=== PATIENT | male | born 1955 | race Caucasian/White ===

== ENCOUNTER 2020-12-13 16:54 | Inpatient (IN) | payer OTHER, SELFPAY ==
[~2020-12-13] VITALS: Ht 180.3 cm; Wt 91.6 kg
[~2020-12-13 16:54] MED LIST: ALIS300T PO; ASPI-1822 PO; CARV6.25 PO; CLOP75TA55 PO; ENAL20TA PO; INSU100S22 SUBQ; METF-350 PO; SIMV40TA1 PO
--- NOTE | 2020-12-13 16:54 | NUR ---
Patient BIBA ALS, transferred to bed 10. RN evaluating the patient at bedside.
[2020-12-13 16:55] VITALS: BP 187/66
--- NOTE | 2020-12-13 16:56 | NUR ---
Dr. Hill is evaluating the patient at bedside.
--- NOTE | 2020-12-13 17:01 | NUR ---
65 Y/O MALE BIBA FROM HOME C/O SOB X 2 HOURS AGO AND C/O NECK, BACK PAIN S/P FALL X 2 DAYS. O2 SAT 85% RA AT HOME PER EMS. BREATHING IS LABORED, DIMINISHED BREATH SOUNDS BILATERAL WITH CRACKLES. PT A/O X3- NOT AWARE OF SITATION. GCS 14. PT DENIES PAIN AT THIS TIME. GEORGIAN SPEAKING ONLY. PT APPEARS PALE AND JAUNDICE WITH MILD WEAKNESS. PT PUT IN GOWN AND ATTACHED TO FLOOR SUPERVISOR. BED IN LOWEST POSITION,BRAKES LOCKED, X2 SIDERAILS UP FOR SAFETY. PMH: CVA, HLD, HTN, DM. NKDA
[2020-12-13] MEDS ORDERED: NITROGLYCERIN 50 MG/D5W PREMIX 250 ML IV ONE (17:05)
--- NOTE | 2020-12-13 17:06 | NUR ---
RT AND LAB AT BEDSIDE
--- NOTE | 2020-12-13 17:08 | NUR ---
PT PUT ON BIPAP.
[2020-12-13 17:19] LABS: BASOPHILS # (AUTO) 0.1 K/uL (0.00-0.22); BASOPHILS % (AUTO) 1.1 % (0.0-2.0); EOSINOPHILS # (AUTO) 0.6 K/uL (0-0.4); EOSINOPHILS % (AUTO) 6.4 % (0.0-4.0); HEMATOCRIT 25.1 % (36-52); HEMOGLOBIN 8.2 g/dL (12.0-18.0); LYMPHOCYTES % (AUTO) 10.1 % (20.5-51.1); MEAN CORPUSCULAR HEMOGLOBIN 29 pg (27-31); MEAN CORPUSCULAR HGB CONC 33 g/dL (33-37); MEAN CORPUSCULAR VOLUME 87.4 fL (80-94); MONOCYTES # (AUTO) 0.6 K/uL (0.8-1.0); MONOCYTES % (AUTO) 5.7 % (1.7-9.3); NEUTROPHILS # (AUTO) 7.7 K/uL (1.8-7.7); NEUTROPHILS % (AUTO) 76.7 % (42.2-75.2); PLATELET COUNT (AUTO) 319 K/uL (140-450); RED BLOOD CELL COUNT(AUTO) 2.87 MIL/uL (4.20-6.10); RED CELL DISTRIBUTION WIDTH 14.1 % (11.6-13.7)
--- NOTE | 2020-12-13 17:39 | NUR ---
Patient taken to CT scan accompanied by RT and RN via [place].
[2020-12-13 17:52] LABS: ALBUMIN 2.7 g/dL (3.4-5.0); ANION GAP 16.3 (8-16); CARBON DIOXIDE 25.1 mmol/L (21-32); POTASSIUM 4.4 mmol/L (3.5-5.1); TOTAL BILIRUBIN 0.4 mg/dL (0.0-1.0)
[2020-12-13 17:57] LABS: CREATININE 7.3 mg/dL (0.6-1.3)
--- NOTE | 2020-12-13 18:05 | NUR ---
CHRIS ISLAS SAMPLE COLLECTED AND WALKED TO LAB
--- NOTE | 2020-12-13 18:48 | NUR ---
PER DR FELDER REQUEST, TAKE PT OFF OF BI PAP. RT CORONADO AT BEDSIDE, TOOK PT OFF OF BIPAP. PT IS NOW ON 5L N/C WITH SPO2 99%
--- NOTE | 2020-12-13 18:51 | NUR ---
D/C BIPAP PER MD AND PLACED ON 5LNC. IF TOLERATES WELL WILL REMAIN ON NC.
--- NOTE | 2020-12-13 19:11 | NUR ---
PT REPLACED ON NIV. PT PLACED BACK ON BIPAP 08/03 f14 60%. PT TOLERATING WELL WILL CONTINUE TO MONITOR
--- NOTE | 2020-12-13 19:18 | NUR ---
REPORT GIVEN TO BRENDA RN, TRANSFER OF CARE AT THIS TIME
--- NOTE | 2020-12-13 19:30 | NUR ---
RECEIVED REPORT FROM JOCELYN RM FOR CONTINUITY OF CARE.
--- NOTE | 2020-12-13 19:45 | NUR ---
RECEIVED PT ON SEMI FOWLERS POSITION ON BIPAP 60% FIO2 O2SAT 98%, NITRO DRIP RUNNING AT THIS TIME 20MCG/MIN. BP: 214/94 ER MD NOTIFIED AND AWARE. NO NEW ORDERS GIVEN AT THIS TIME.
[2020-12-13 19:48] VITALS: BP 216/92
--- NOTE | 2020-12-13 19:55 | NUR ---
NOTIFIED DR. FELDER OF BS OF 232. GAVE NO NEW ORDERS AT THIS TIME.
--- NOTE | 2020-12-13 20:00 | NUR ---
SEE IV SPREADSHEET FOR VS.
[2020-12-13 20:17] VITALS: BP 170/95
--- NOTE | 2020-12-13 21:14 | NUR ---
REPORT CALLED TO JAG CLEMENTS
--- NOTE | 2020-12-13 21:21 | NUR ---
NITRO DRIP TITRATED TO 10 MCG/MIN BP: 154/92.
--- NOTE | 2020-12-13 21:30 | NUR ---
Patient will be admitted to care of DR. MEADE. Admited to ICU. Will go to BED 5. Belongings list completed. Report to JAG CLEMENTS.
--- NOTE | 2020-12-13 21:30 | NUR ---
SPOKE WITH PATIENTS DAUGHTER ALPHONSO SQUIRES AND GRANDAUGHTER QUINCY MARTIN PER PATIENTS CONSENT. ANSWERED QUESTIONS READILY AND PROVIDED CONTACT INFO: & . PER FAMILY, THEY DO NOT KNOW THE PATIENTS HX THEY STATE "I HAVENT SEEN HIM IN A LONG TIME AND WE HAVENT KEEP IN TOUCH IN A WHILE". PER FAMILY PT HAD A CAREGIVER CELSA LEE CALLED AND NO ANSWER AT THIS TIME. VOICEMAIL LEFT.
[2020-12-13 21:41] VITALS: BP 159/74
--- NOTE | 2020-12-13 21:41 | NUR ---
PT TRANSPORTED FROM ED TO ICU 5. PT TOLERATED TRANSPORT WELL AND REMAINS ON BIPAP W/ NO CHANGES TO BIPAP. BIPAP PLUGGED INTO RED OUTLET WILL CONTINUE TO MONITOR
--- NOTE | 2020-12-13 21:45 | NUR ---
RECEIVED CARE AND REPORT FROM CHANGE OVER. UPON ARRIVAL TO ICU BED 5, PATIENT ALERT AND ORIENTED X4, ROMANIAN SPEAKING, UNDERSTANDS SOME LITHUANIAN, ABLE TO FOLLOW COMMANDS AND IS TRACKING. PATIENT WEIGHT TAKEN ON BED SCALE, 90.5 KG, PATIENT. PATIENT ARRIVED ON BIPAP, SETTINGS CURRENTLY RR 14, IPAP 12, RISE 3, EPAP 5, AND O2 60%, HOB 35 DEGREES FOR COMFORT AND TO PROMOTE BETTER BREATHING. TOLERATING SETTINGS WELL, RR 24, OXYGEN SATURATION 100%, NO OBVIOUS SIGNS OF DISTRESS NOTED. PATIENT CONNECTED TO CONTINUOUS CREDIT OPERATIONS PROCESSOR, HR 86, NORMAL SINUS RHYTHM, WILL CONTINUE TO CLOSELY MONITOR. PATIENT IV ACCESS SITES ARE LEFT AC 18 G AND LEFT HAND 18G, SITES SECURED, INTACT AND FLUSHING WELL. IV DRIPS CURRENTLY RUNNING INCLUDE NITRO DRIP AT 10 MCG/MIN, CORRECT TUBING CONNECTED. PATIENT ABLE TO USE BEDSIDE COMMODE AND URINAL WITH NURSE ASSISTANCE. SKINS MOSTLY INTACT, LEFT FOOT MISSING MIDDLE DIGIT, 4 TOES PRESENT TOTAL ON LEFT. PATIENT CURRENTLY RESTING IN A POSITION OF COMFORT, BEING OFFLOADED FROM PRESSURE POINTS WITH USE OF PILLOWS AND FREQUENT REPOSITIONING. WILL CONTINUE FREQUENTLY ROUND AND TO CLOSELY MONITOR THROUGHOUT THE SHIFT.
[2020-12-13] MEDS ORDERED: DOCUSATE SODIUM 100 MG GELCAP PO PRN (22:15)
[2020-12-13] MEDS ORDERED: HYDROcodone/APAP 7.5/325 MG 1 TAB PO PRN (22:15)
[2020-12-13] MEDS ORDERED: DEXTROSE 50% 50 ML SYR IVP PRN (22:15)
[2020-12-13] MEDS ORDERED: ONDANSETRON 4 MG/2 ML VIAL IM/IVP PRN (22:15)
[2020-12-13] MEDS ORDERED: ACETAMINOPHEN 325 MG TAB PO PRN (22:15)
[2020-12-13] MEDS ORDERED: POTASSIUM CHLORIDE 10 MEQ TABER PO PRN (22:15)
[2020-12-13 22:27] VITALS: BP 177/75
[2020-12-13 22:57] LABS: PROTHROMBIN TIME 9.8 secs (10.8-13.4)
[2020-12-13] MEDS ORDERED: cefTRIAXone 1,000 MG VIAL ONE ×2 (22:59→23:11)
[2020-12-13 23:00] VITALS: BP 165/77
[2020-12-13 23:04] LABS: CHOL/HDL RATIO 3.3 (1-4.5); FREE T4 (FREE THYROXINE) 1.1 ng/dL (0.76-1.46); MAGNESIUM 2.8 mg/dL (1.8-2.4); PHOSPHORUS 5.7 mg/dL (2.5-4.9); THYROID STIMULATING HORMONE 3.67 uIU/mL (0.34-3.74)
--- NOTE | 2020-12-13 23:30 | NUR ---
RT TITRATED FIO2 DOWN TO 50%, TOLERATING THERAPY WELL. WILL CONTINUE TO CLOSELY MONITOR AND FREQUENTLY ROUND.
[2020-12-14] VITALS (28 sets, daily range): BP systolic 127–189; BP diastolic 51–81
--- NOTE | 2020-12-14 00:50 | NUR ---
CONTACTED DR. MEADE REGARDING WHETHER OR NOT TO CONTINUE NITRO DRIP. DR. MEADE GAVE ORDER TO HOLD DRIP AT THIS TIME. WILL CARRY OUT ORDERS. NO OTHER NEW ORDERS AT THIS TIME, WILL CONTINUE TO CLOSELY MONITOR AND FREQUENTLY ROUND.
--- NOTE | 2020-12-14 01:18 | NUR ---
FIO2 TITRATED TO 40% AND PT TOLERATING WELL WILL CONTINUE TO MONITOR APPROX 23:36 12-13- FIO2 TITRATED TO 50% AND TOLERATING WELL WILL CONTINUE TO MONITOR
--- NOTE | 2020-12-14 01:24 | NUR ---
DR. PARKER PAGED TO REPORT ABNORMAL LABS CALLED FROM THE LAB, TROPONIN TRENDING UPWARD, NEW VALUE 3.670. INFORMED DR. LONDNOO AWAITING CALL BACK.
--- NOTE | 2020-12-14 01:30 | NUR ---
DR. LONDONO RETURNED PHONE CALL, INFORMED MD OF PATIENT STATUS, MEDICATIONS CURRENTLY ORDERED, AND LABS INCLUDING TROPONIN 3.670. MD GAVE ORDER OVER THE PHONE TO GIVE 325 MG ASPIRIN PO, MD MADE AWARE OF ASPIRIN/PLAVIX REGIMEN ORDERED IN [facility] ALREADY, AND ALSO GIVEN ORDER TO START HEPARIN DRIP. ORDERED A PTT STAT AND WILL BEGIN HEPARIN DRIP IMMEDIATELY FOLLOWING NEW PTT VALUE AND WILL FOLLOW PHARMACY PROTOCOL FOR HEPARIN ADMINISTRATION. WILL CARRY OUT ORDERS AND CONTINUE TO CLOSELY MONITOR AND FREQUENTLY ROUND.
--- NOTE | 2020-12-14 01:30 | NUR ---
RT TITRATED FIO2 DOWN TO 40%, TOLERATING SETTINGS WELL. WILL CONTINUE TO CLOSELY MONITOR AND FREQUENTLY ROUND.
[2020-12-14] MEDS ORDERED: HEPARIN PER PHARMACY MC PRN (01:40)
[2020-12-14] MEDS ORDERED: ASPIRIN 325 MG TAB PO SCH (01:40)
--- NOTE | 2020-12-14 02:30 | NUR ---
PATIENT TOLERATING CURRENT THERAPIES IN PLACE, TOLERATING WELL. NO SIGNS OF DISTRESS NOTED. RT TITRATED FIO2 DOWN TO 30%, TOLERATING NEW SETTINGS WELL. WILL CONTINUE TO CLOSELY MONITOR AND FREQUENTLY ROUND.
--- NOTE | 2020-12-14 04:30 | NUR ---
PATIENT STARTED ON HEPARIN DRIP THERAPY PER DR. LONDONO. PRIOR TO STARTING THERAPY, STAT PTT TAKEN, UPDATED LEVEL 26.0. HEPARIN PROTOCOL IN PLACE, LOADING DOSE OF HEPARIN GIVEN PER ORDERS AND STARTED ON HEPARIN DRIP AT 925 UNITS/HR PER PROTOCOL/ORDER, PROVIDED FROM PHARMACY. ANOTHER PTT ORDER PLACED Q6 HOURS POST STARTING THERAPY. WILL CONTINUE TO CLOSELY MONITOR AND FREQUENTLY ROUND.
[2020-12-14] MEDS: hePARIN / DEXT 5% PREMIX 250 ML IV SCH (04:44)
--- NOTE | 2020-12-14 06:00 | NUR ---
PATIENT CONTINUES TO SLEEP IN POSITION OF COMFORT, TOLERATING ALL THERAPIES WELL. MAINTAINING OXYGEN SATURATION 97% ON BIPAP, NO SIGNS OF DISTRESS NOTED. WILL CONTINUE TO CLOSELY MONITOR AND FREQUENTLY ROUND.
[2020-12-14 06:26] LABS: ANION GAP 14.4 (8-16); CARBON DIOXIDE 24.8 mmol/L (21-32); POTASSIUM 4.2 mmol/L (3.5-5.1)
[2020-12-14 06:35] LABS: CREATININE 7.2 mg/dL (0.6-1.3)
--- NOTE | 2020-12-14 07:20 | NUR ---
RECEIVED HANDOFF FROM COMPUTATIONAL LINGUIST RN. PT IS ALERT AND ORIENTED X4, CROATIAN SPEAKING. PT IS SR ON THE MONITOR AT THIS TIME. PT IS CURRENTLY ON BIPAP FIO2 24%, NO SIGNS OF RESPIRATORY DISTRESS. FOR ACCESS PT HAS LAC 18 G AND L H 18 G. HEPARIN IS RUNNING AT 925 UN/HR PER PROTOCOL. PT IS ABLE TO USE URINAL. HOB IS 30 DEG, PT IS SITTING UP WATCHING TV. SAFETY MEASURES IN PLACE. WILL CONTINUE TO MONITOR.
--- NOTE | 2020-12-14 07:28 | NUR ---
RECEIVED PT ON BIPAP 12/ R14 FIO2 TITRATED TO 24%. PT AWAKE AND ALERT. ALARMS ON AND FUNCTIONING.
[2020-12-14 07:43] LABS: BASOPHILS # (AUTO) 0.1 K/uL (0.00-0.22); BASOPHILS % (AUTO) 1.5 % (0.0-2.0); EOSINOPHILS # (AUTO) 0.4 K/uL (0-0.4); EOSINOPHILS % (AUTO) 4.6 % (0.0-4.0); HEMATOCRIT 22.2 % (36-52); HEMOGLOBIN 7.6 g/dL (12.0-18.0); LYMPHOCYTES # (AUTO) 1.1 K/uL (2.0-11.5); LYMPHOCYTES % (AUTO) 13.4 % (20.5-51.1); MEAN CORPUSCULAR HEMOGLOBIN 29 pg (27-31); MEAN CORPUSCULAR HGB CONC 34 g/dL (33-37); MEAN CORPUSCULAR VOLUME 85.5 fL (80-94); MONOCYTES # (AUTO) 0.7 K/uL (0.8-1.0); MONOCYTES % (AUTO) 8.6 % (1.7-9.3); NEUTROPHILS # (AUTO) 6.1 K/uL (1.8-7.7); NEUTROPHILS % (AUTO) 71.9 % (42.2-75.2); PLATELET COUNT (AUTO) 253 K/uL (140-450); RED CELL DISTRIBUTION WIDTH 13.9 % (11.6-13.7); WHITE BLOOD COUNT (AUTO) 8.4 K/uL (4.8-10.8)
--- NOTE | 2020-12-14 07:44 | NUR ---
PT TAKEN OFF BIPAP. PT PLACED ON 4L NC AT THIS TIME TOLERATING WELL. SPO2 97% PT NOT DEMONSTRATING SIGNS/SYMPTOMS OF RESPIRATORY DISTRESS. NURSE MADE AWARE. WILL CONTINUE TO MONITOR.
[2020-12-14] MEDS: BLOOD GLUCOSE MONITORING 1 DEV DEV FS SCH ×4 (07:58→20:08)
[2020-12-14] MEDS: ASPIRIN 81 MG TAB.CHEW PO SCH (08:50)
[2020-12-14] MEDS: CLOPIDOGREL 75 MG TAB PO SCH (08:52)
[2020-12-14] MEDS: ENALAPRIL 10 MG TAB PO SCH (08:56)
[2020-12-14] MEDS: SIMVASTATIN 40 MG TAB PO SCH (08:56)
[2020-12-14] MEDS: AZITHROMYCIN 250 MG TAB PO SCH (08:57)
[2020-12-14] MEDS: carvediloL 6.25 MG TAB PO SCH (08:57)
[2020-12-14] MEDS ORDERED: NON-FORMULARY ITEM (Enalapril Maleate 20 MG) PO SCH (09:00)
[2020-12-14] MEDS ORDERED: ALISKIREN HEMIFUMARATE 300 MG PO SCH (09:00)
--- NOTE | 2020-12-14 09:07 | NUR ---
MEDICATIONS ADMINISTERED PER ORDER, HELD BLOOD THINNERS AT THIS TIME BECAUSE PT IS ON HEPARIN DRIP. TEMPERATURE 98.8 ORALLY. BG 98, NO INSULIN COVERAGE NEEDED. PT IS SITTING UP IN BED WITH HEAD ELEVATED, WATCHING TV. NO SIGNS OF RESPIRATORY DISTRESS, VSS.
--- NOTE | 2020-12-14 09:18 | NUR ---
DR. MEADE SEEING PT.
--- NOTE | 2020-12-14 10:05 | NUR ---
DR. BROOKS SEEING PT. PER DR. BROOKS NO DIALYSIS AT THIS TIME. WILL REEVALUATE TOMORROW.
--- NOTE | 2020-12-14 11:45 | NUR ---
DR. SINGLETARY SEEING PT
[2020-12-14] MEDS: INSULIN LISPRO SLIDING SCALE 100 UNITS/ML VIAL SUBQ PRN ×2 (12:28→20:10)
--- NOTE | 2020-12-14 12:42 | NUR ---
PTT 38.8, HEPARIN PROTOCOL IN PLACE. 2300 UNIT BOLUS GIVEN AND RATE INCREASED TO 1075 UN/HR. BS 178, 2 UNITS OF INSULIN ADMINISTERED. TEMPERATURE 98.7 TEMPORALLY.
--- NOTE | 2020-12-14 12:44 | NUR ---
URINE SPECIMEN WALKED TO LAB.
--- NOTE | 2020-12-14 13:35 | NUR ---
NASAL CANNULA TITRATED TO 2L. PT NOT IN ANY DISTRESS AT THIS TIME.
--- NOTE | 2020-12-14 15:27 | NUR ---
18 G LH IV NOTED TO BE BLEEDING. REMOVED IV, CANNULA INTACT. BLEEDING CONTROLLED. PT CLEANED AND LINENS CHANGED.
--- NOTE | 2020-12-14 17:36 | NUR ---
BS 105, NO INSULIN COVERAGE NEEDED. TEMPERATURE 98.6 TEMPORALLY. PT REMAINS SITTING UP IN BED, WATCHING TV
--- NOTE | 2020-12-14 18:40 | NUR ---
PT ASSISTED IN EATING DINNER, SITTING UP IN BED. PT CONSUMED 100% OF MEAL.
--- NOTE | 2020-12-14 19:05 | NUR ---
phone call to dr mari estes,[employer] administrator, pts bp 170/69; rechecked 181/70; new orders received.carried out
--- NOTE | 2020-12-14 19:08 | NUR ---
HANDOFF GIVEN TO CLAIMS SUPERVISOR JAG CLEMENTS FOR CONTINUITY OF CARE
--- NOTE | 2020-12-14 19:30 | NUR ---
RECEIVED REPORT AND TRANSFER OF CARE FROM DAYSHIFT RN. PATIENT ALERT AND ORIENTED X 4 TO PERSON, PLACE, TIME AND EVENT, SLOVENIAN SPEAKING, UNDERSTANDS SOME PORTUGUESE. PATIENT TRACKING WITH EYES UPON GOING TO BED SIDE. PATIENT ON NC 3 LPM, TOLERATING SETTINGS WELL, OXYGEN SATURATION 97%. PATIENT CONNECTED TO CONTINUOUS CARDIAC MONITORING, HR 86, RR 26, NO OBVIOUS SIGNS OF DISTRESS. TOLERATING CURRENT THERAPIES, WILL CONTINUE TO CLOSELY MONITOR. PATIENT IV ACCESS SITES INCLUDE LEFT AC 18G, SITE INTACT, DRY, FLUSHING WELL. IV DRIPS CURRENTLY RUNNING INCLUDE HEPARIN AT 1075 UNITS/HR. PATIENT APPROXIMATE WEIGHT IS 90.2 KG. PATIENT CURRENTLY ABLE TO USE URINAL IN BED WITH NURSE ASSISTANCE. PATIENT SKINS MOSTLY INTACT, LEFT FOOT MIDDLE TOE MISSING, PREVIOUS AMPUTATION, RIGHT FOOT ANKLE BRACE IN PLACE FROM BRENDA FALL AT PATIENTS HOME X 3 DAYS AGO. LOWER EXTREMITY PITTING EDEMA BILATERALLY. RIGHT SIDED DEFICITS FROM PREVIOUS CVA'S, RIGHT ARM CONTRACTED TOWARDS CHEST, NORMAL FOR PATIENT BASELINE. PATIENT OFFLOADED FROM PRESSURE POINTS WITH USE OF PILLOWS AND FREQUENT REPOSITIONING. BED LOCKED AND LOWERED INTO A POSITION OF SAFETY AND COMFORT. NURSE CALL LIGHT PLACED WITHIN ARMS REACH OF PATIENT. WILL CONTINUE TO CLOSELY MONITOR AND FREQUENTLY ROUND THROUGHOUT THE SHIFT.
[2020-12-14] MEDS: hydrALAZINE 25 MG TAB PO SCH (20:18)
[2020-12-14] MEDS: METOPROLOL 50 MG TAB PO SCH (20:18)
--- NOTE | 2020-12-14 20:30 | NUR ---
PATIENT BEGINNING TO DESATURATE TO 92% OXYGEN SATURATION ON CURRENT INTERVENTION. RT CONTACTED AND ARRIVED AT BEDSIDE. NC TURNED UP TO 5 LPM BY RT. OXYGEN SATURATION INCREASING SLIGHTLY, WILL CONTINUE TO CLOSELY MONITOR AND FREQUENTLY ROUND.
[2020-12-14] MEDS ORDERED: ALBUTEROL SULFATE/IPRATROPIU 3 ML SOL IH PRN (20:50)
--- NOTE | 2020-12-14 20:50 | NUR ---
phone call to [facility] day care director, business management consultant is dr basurto, spoke with md; updated on pts present condition.questions answered.md made aware pt appears to be short of breath,saturation 85% at this time on high flow 75% 02; also noted some expiratory wheezing; ordered breathing treatment, lori rt at bedside and aware. pt also very agitated/anxious; new order received.carried out
--- NOTE | 2020-12-14 20:51 | NUR ---
RN SPOKE WITH DR EID, ENTERED ORDER FOR DUONEB Q6 PRN, PT HAS WHEEZING PRESENT AT THIS TIME, WILL ADMINISTER PRN TREATMENT AND CONTINUE TO MONITOR.
[2020-12-14] MEDS ORDERED: ALBUTEROL SULFATE/IPRATROPIU 3 ML SOL IH ONE (21:01)
[2020-12-14] MEDS: LORazepam 2 MG/ML VIAL IVP PRN (21:12)
--- NOTE | 2020-12-14 21:12 | NUR ---
PATIENT SHOWING SIGNS OF ANXIETY WITH SLIGHTLY INCREASED RESPIRATIONS, PRN ORDER OF ATIVAN GIVEN IV PUSH, WILL CONTINUE TO MONITOR AND REASSESS PATIENT STATUS AND CONDITION.
--- NOTE | 2020-12-14 21:30 | NUR ---
PATIENT BEGINNING TO REST AND RELAX S/P PRN MED ADMINISTRATION. RESTING IN A POSITION OF COMFORT, HOB 30 DEGREES, TOLERATING CURRENT THERAPIES WELL. OXYGEN SATURATION INCREASED UP TO 95% AND RR 22. RT AT BEDSIDE WITH RN MONITORING AND AWARE OF PATIENT RESPIRATORY STATUS. RT PLACED PATIENT ON HUMIDIFIED OXYGEN NC AT 6 LPM, NO OBVIOUS SIGNS OF DISTRESS. WILL CONTINUE TO CLOSELY MONITOR AND FREQUENTLY ROUND.
--- NOTE | 2020-12-14 23:00 | NUR ---
PATIENT OFFERED DIABETIC APPROPRIATE SNACKS/FOOD, PATIENT REFUSED.
--- NOTE | 2020-12-14 23:43 | NUR ---
PATIENT ASLEEP, RESTING IN A POSITION OF COMFORT, HOB 30 DEGREES. NO SIGNS OF DISTRESS NOTED WHEN AT BEDSIDE. ON THE ROLL TENSION TESTER, HR 62, RR 18, OXYGEN SATURATION 100%. TOLERATING HUMIDIFIED NC 6 LPM WELL. WILL CONTINUE TO CLOSELY MONITOR AND FREQUENTLY ROUND.
[2020-12-15] VITALS (24 sets, daily range): BP systolic 115–178; BP diastolic 51–106
[2020-12-15] MEDS: hePARIN / DEXT 5% PREMIX 250 ML IV SCH (01:51)
--- NOTE | 2020-12-15 02:00 | NUR ---
CALM, RELAXED AND RESTING COMFORTABLY, HOB 30 DEGREES, IN A POSITION OF COMFORT. CONTINUES TO TOLERATE CURRENT THERAPIES WELL. NO SIGNS OF DISTRESS NOTED WHEN BEDSIDE WITH THE PATIENT. COAL HIKER CURRENTLY SHOWS HR 67, RR 18, AND OXYGEN SATURATION AT 98%. WILL CONTINUE TO CLOSELY MONITOR AND FREQUENTLY ROUND.
--- NOTE | 2020-12-15 02:20 | NUR ---
LAB CALLED WITH CRITICAL LAB VALUE FOR PTT OF 95.6. PATIENT HEPARIN DRIP RUNNING AT 1375 UNITS/HR. PER HEPARIN PROTOCOL, STOP DRIP FOR 1 HOUR AND REDUCE RATE BY 250 UNITS/HR. DRIP ON HOLD X1 HOUR AND NEW SET RATE WHEN RESTARTING DRIP AT 1125 UNITS/HR. WILL CONTINUE TO CLOSELY MONITOR AND FREQUENTLY ROUND.
--- NOTE | 2020-12-15 03:20 | NUR ---
HEPARIN DRIP RESTARTED AGAIN AT NEW RATE OF 1125 UNITS/HR PER HEPARIN PROTOCOL. WILL CONTINUE TO CLOSELY MONITOR AND FREQUENTLY ROUND.
--- NOTE | 2020-12-15 04:00 | NUR ---
PATIENT SLEEPING/RESTING IN A POSITION OF COMFORT. TOLERATING HUMIDIFIED OXYGEN 6 LPM WELL, NO SIGNS OF DISTRESS NOTED AT THE BEDSIDE. PRESTIDIGITATOR SHOWS HR 67, RR 15, AND OXYGEN SATURATION 99%. WILL CONTINUE TO CLOSELY MONITOR AND FREQUENTLY ROUND.
[2020-12-15] MEDS: hydrALAZINE 25 MG TAB PO SCH ×3 (04:01→20:17)
--- NOTE | 2020-12-15 06:00 | NUR ---
PATIENT PROVIDED HYGIENE, GOWN CHANGE AND LINEN CHANGE. PATIENT REPOSITIONED INTO A POSITION OF COMFORT, HOB 30 DEGREES, CONTINUES TO REST COMFORTABLY. TOLERATING THERAPIES WELL. WILL CONTINUE TO CLOSELY MONITOR AND FREQUENTLY ROUND.
[2020-12-15 06:06] LABS: BASOPHILS # (AUTO) 0.1 K/uL (0.00-0.22); BASOPHILS % (AUTO) 0.7 % (0.0-2.0); EOSINOPHILS # (AUTO) 0.1 K/uL (0-0.4); HEMATOCRIT 21.7 % (36-52); HEMOGLOBIN 7.3 g/dL (12.0-18.0); LYMPHOCYTES # (AUTO) 0.8 K/uL (2.0-11.5); LYMPHOCYTES % (AUTO) 7.3 % (20.5-51.1); MEAN CORPUSCULAR HEMOGLOBIN 29 pg (27-31); MEAN CORPUSCULAR HGB CONC 34 g/dL (33-37); MEAN CORPUSCULAR VOLUME 86.5 fL (80-94); MONOCYTES # (AUTO) 0.6 K/uL (0.8-1.0); MONOCYTES % (AUTO) 5.3 % (1.7-9.3); NEUTROPHILS # (AUTO) 9.6 K/uL (1.8-7.7); NEUTROPHILS % (AUTO) 85.7 % (42.2-75.2); PLATELET COUNT (AUTO) 281 K/uL (140-450); RED BLOOD CELL COUNT(AUTO) 2.51 MIL/uL (4.20-6.10); RED CELL DISTRIBUTION WIDTH 13.7 % (11.6-13.7); WHITE BLOOD COUNT (AUTO) 11.2 K/uL (4.8-10.8)
[2020-12-15 06:07] LABS: T4 (THYROXINE) 7.6 ug/dL (4.5-12.0)
--- NOTE | 2020-12-15 06:30 | NUR ---
BLOOD GLUCOSE CHECKED, 128, NO COVERAGE NEEDED. WILL CONTINUE TO CLOSELY MONITOR AND FREQUENTLY ROUND.
[2020-12-15] MEDS: BLOOD GLUCOSE MONITORING 1 DEV DEV FS SCH ×4 (07:00→20:13)
[2020-12-15 07:04] LABS: ANION GAP 16.6 (8-16); POTASSIUM 4.6 mmol/L (3.5-5.1)
[2020-12-15 07:09] LABS: CREATININE 7.5 mg/dL (0.6-1.3)
--- NOTE | 2020-12-15 07:13 | NUR ---
REPORT AND CARE ENDORSED TO CHE RM.
--- NOTE | 2020-12-15 07:30 | NUR ---
RECEIVED REPORT FROM ASSISTANT MEDIA BUYER. AOX4, NO SOB, ABLE TO MAKE NEEDS KNOWN VERBALLY, NO C/O PAIN AT THIS TIME. WITH IV LAC18G RUNNING HEPARIN DRIP 1125 UNIT/HR. BLOOD PRESSURE ELEVATED 163/83, WILL MEDICATE. ON 6L O2 VIA NC. BOWEL AND BLADDER CONTINENT. CALL LIGHT WITHIN REACH. SAFETY PRECAUTIONS OBSERVED. WILL CONT TO MONITOR
--- NOTE | 2020-12-15 07:57 | NUR ---
PATIENT HAS BEEN SCREENED AND CATEGORIZED HIGH NUTRITION RISK. PATIENT WILL BE SEEN WITHIN 1-2 DAYS OF ADMISSION. 12/14/20 - 12/15/20 BAUTISTA CORRIGAN MBA, RD
[2020-12-15] MEDS: ASPIRIN 81 MG TAB.CHEW PO SCH (08:21)
[2020-12-15] MEDS: AZITHROMYCIN 250 MG TAB PO SCH (08:21)
[2020-12-15] MEDS: CLOPIDOGREL 75 MG TAB PO SCH (08:21)
[2020-12-15] MEDS: SIMVASTATIN 40 MG TAB PO SCH (08:21)
[2020-12-15] MEDS: carvediloL 6.25 MG TAB PO SCH (08:21)
[2020-12-15] MEDS: METOPROLOL 50 MG TAB PO SCH (08:21)
[2020-12-15] MEDS: ENALAPRIL 10 MG TAB PO SCH (08:21)
--- NOTE | 2020-12-15 08:30 | NUR ---
ASSISTED PT WITH EATING BREAKFAST. DUE MORNING MEDS GIVEN. TOLERATED WELL. TITRATED O2 DOWN TO 4L, O2SAT 100%
--- NOTE | 2020-12-15 09:32 | NUR ---
RECEIVED PTT 53.7 FROM LAB, NO CHANGE, WILL DRAW IN 6 HOUR.
--- NOTE | 2020-12-15 10:10 | NUR ---
12/15/20 RD INITIAL ASSESSMENT COMPLETED. PLEASE REFER TO NUTRITION ASSESSMENT UNDER CARE ACTIVITY FOR ESTIMATED NUTRITIONAL NEEDS. RD RECOMMENDATIONS: 1. RECOMMEND CHANGE DIET ORDER TO 75GM CCHO RENAL DIET (TO HELP MEET ENERGY NEEDS OF PATIENT WITH CONTROLLED PROTEIN INTAKE) 2. FOLLOW UP 2-3 DAYS; HIGH RISK. BAUTISTA CORRIGAN MBA, RD
[2020-12-15] MEDS ORDERED: EPOETIN ALFA-EPBX 20,000 UNITS/ML VIAL IV SCH (10:25)
--- NOTE | 2020-12-15 10:30 | NUR ---
SEEN BY DR BROOKS, ORDERED FOR HD TUNNEL CATH PLACEMENT AND DIALYSIS TOMORROW
--- NOTE | 2020-12-15 11:00 | NUR ---
SEEN BY DR AMES WITH NEW ORDERES MADE AND CARRIED OUT
[2020-12-15] MEDS: INSULIN LISPRO SLIDING SCALE 100 UNITS/ML VIAL SUBQ PRN ×2 (11:13→20:15)
--- NOTE | 2020-12-15 11:51 | NUR ---
RECEIVED CRITICAL LAB FOR TROPONIN 3.142, DR HUI Fu MADE AWARE AT NURSING STATION. DR HUI Fu. WILL ASSESS PATIENT. NO ORDER RECEIVED AT THIS TIME.
--- NOTE | 2020-12-15 12:15 | NUR ---
RECEIVED TORB ORDER FROM DR HUI Fu TO D/C LOPRESSOR, INCREASED COREG TO 50 MG BID PO. REPEATED AND CONFIRMED ORDER WITH DR HUI Fu. WILL INPUT ACCORDINGLY.
--- NOTE | 2020-12-15 13:30 | NUR ---
SEEN BY DR LIN, ORDERED TO HOLD PLAVIX AND ASPIRIN TOMORROW AND TO HOLD HEPARIN AFTER MIDNIGHT
--- NOTE | 2020-12-15 16:30 | NUR ---
SEEN BY DR SINGLETARY. NO NEW ORDERS
[2020-12-15] MEDS: CLONIDINE HYDROCHLORIDE 0.1 MG TAB PO PRN (16:31)
[2020-12-15] MEDS ORDERED: guaiFENesin 20 MG/ML UDC PO PRN (16:35)
--- NOTE | 2020-12-15 16:45 | NUR ---
BP 169/79, WITH C/O COUGH. ROBITUSSIN AND CATAPRES PRN GIVEN ORDERED
--- NOTE | 2020-12-15 19:30 | NUR ---
phone call to joanne,dialysis nurse; made aware pt has order for hd in am,dr valverde will put the hd catheter also in am.
--- NOTE | 2020-12-15 19:30 | NUR ---
RECEIVED CARE AND REPORT FROM DAYSHIFT RN. UPON ENTERING TO BEDSIDE, PATIENT TRACKING WITH EYES, ALERT AND ORIENTED X [address], [address]ACE, TIME AND EVENT. GCS 15. PATIENT CURRENTLY LAYING IN THE BED IN A POSITION OF COMFORT, HOB 30 DEGREES, NO SIGNS OF DISTRESS NOTED. PATIENT CONNECTED TO NC 2 LPM HUMIDIFIED OXYGEN, TOLERATING THERAPY WELL, OXYGEN SATURATION 95%. PATIENT CONNECTED TO CONTINUOUS CARDIAC MONITORING, HR 78, RR 20, WILL CONTINUE TO CLOSELY MONITOR. PATIENT HAS LEFT AC 20G, DRESSINGS DRY, INTACT AND SITE FLUSHES WELL. IV DRIPS RUNNING INCLUDE HEPARIN AT 1125 UNITS/HR. PATIENT APPROXIMATE WEIGHT 90.2 KG. PATIENT SKINS SHOW LEFT FOOT MISSING MIDDLE DIGIT, RIGHT FOOT ANKLE BRACE ON FROM PREVIOUS FALL WHEN AT PATIENTS HOME RESIDENCE, SOME MILD BRUISING NOTED TO THE BACK AND BILATERAL ARMS. PATIENT ABLE TO USE BEDSIDE URINAL AND BED PEREZ WITH RN ASSISTANCE. BED LOCKED AND LOWERED INTO A POSITION OF SAFETY AND COMFORT. PATIENT HAS NURSE CALL LIGHT WITHIN ARMS REACH. WILL CONTINUE TO CLOSELY MONITOR AND FREQUENTLY ROUND THROUGHOUT THE SHIFT.
[2020-12-15] MEDS: carvediloL 12.5 MG TAB PO SCH (20:17)
[2020-12-15] MEDS: LORazepam 2 MG/ML VIAL IVP PRN (20:21)
--- NOTE | 2020-12-15 20:21 | NUR ---
PATIENT SHOWING SOME SIGNS OF MILD ANXIETY, RESTLESSNESS, AND INCREASED RESPIRATIONS. GIVEN PRN IVP ATIVAN FOR ANXIETY. WILL CONTINUE TO CLOSELY MONITOR, REASSESS AND FREQUENTLY ROUND.
[2020-12-15] MEDS ORDERED: carvediloL 6.25 MG TAB PO SCH (21:00)
--- NOTE | 2020-12-15 21:30 | NUR ---
PATIENT CALM AND RESTING COMFORTABLY IN THE BED, HOB 30 DEGREES. NO SIGNS OF DISTRESS NOTED AT BEDSIDE. RR 22 AND OXYGEN SATURATION 100%. WILL CONTINUE TO CLOSELY MONITOR AND FREQUENTLY ROUND.
--- NOTE | 2020-12-15 22:00 | NUR ---
PATIENT ASLEEP, CALM WITH NO SIGNS OF DISTRESS NOTED AT BEDSIDE. PATIENT HOB 30 DEGREES, TOLERATING HUMIDIFIED OXYGEN NC 6 LPM AND THERAPIES WELL, OXYGEN SATURATION 100%. PATIENT OCCASIONALLY GOES BETWEEN NORMAL SINUS RHYTHM AND SINUS CHICO ON THE MONITOR WHILE ASLEEP. WILL CONTINUE TO CLOSELY MONITOR AND FREQUENTLY ROUND.
[2020-12-16] VITALS (24 sets, daily range): BP systolic 116–187; BP diastolic 60–88
--- NOTE | 2020-12-16 | NUR ---
NPO AT MIDNIGHT AND HEPARIN DRIP HELD.
--- NOTE | 2020-12-16 00:10 | NUR ---
PATIENT VOIDED WITH RN ASSISTANCE, STILL RESTING COMFORTABLY AND CALM. ASSISTED BACK INTO POSITION OF COMFORT TO PROMOTE REST, RELAXATION AND SLEEP FOR THE PATIENT. PATIENT CONTINUES TO TOLERATE THERAPIES WELL, RECOVERER SHOWS HR 60, RR 20, AND OXYGEN SATURATION 99%. REMAINS ON HUMIDIFIED OXYGEN 6 LPM, HOB 30 DEGREES. WILL CONTINUE TO CLOSELY MONITOR AND FREQUENTLY ROUND.
--- NOTE | 2020-12-16 02:00 | NUR ---
PATIENT CONTINUING TO REST. WOKE UP TO VOID WITH RN ASSISTANCE, THEN WENT BACK TO SLEEP. HOB 25 DEGREES, IN POSITION OF COMFORT. PATIENT STILL CALM AND RELAXED. SHANK PIECE TACKER SHOWS HR 60, RR 18, OXYGEN SATURATION 99%, NO SIGNS OF DISTRESS NOTED WHILE AT BEDSIDE. PATIENT CONTINUES TO TOLERATE THERAPIES WELL, REMAINS NPO POST MIDNIGHT. WILL CONTINUE TO CLOSELY MONITOR AND FREQUENTLY ROUND.
--- NOTE | 2020-12-16 04:00 | NUR ---
PATIENT PROVIDED MORNING CARE, GOWN CHANGE, LINEN CHANGE, IV DRESSINGS CHANGED AND SAFETY CHECKS IN PLACE. NO SIGNS OF DISTRESS NOTED. WILL CONTINUE TO CLOSELY MONITOR AND FREQUENTLY ROUND.
--- NOTE | 2020-12-16 04:40 | NUR ---
PT AWAKE,MORNING CARE DONE.CHG BATH DONE. NO SOB NOTED.DENIES PAIN
[2020-12-16] MEDS: hydrALAZINE 25 MG TAB PO SCH ×3 (04:51→20:23)
--- NOTE | 2020-12-16 05:06 | NUR ---
PT SLEEPING COMFORATBLY W/ NO DISTRESS NOTED. FIO2 TITRATED FROM 6 TO 4LNC WILL CONTINUE TO MONITOR
[2020-12-16 06:01] LABS: ANION GAP 14.4 (8-16); CARBON DIOXIDE 25.1 mmol/L (21-32); POTASSIUM 4.5 mmol/L (3.5-5.1)
--- NOTE | 2020-12-16 06:02 | NUR ---
FIO2 TITRATED TO 2LNC AND TOLERATING WELL AT THIS TIME. PT SPO2 PRE TITRATION 100% CURRENT SPO2 99%
[2020-12-16 06:05] LABS: CREATININE 7.6 mg/dL (0.6-1.3)
[2020-12-16 06:16] LABS: BASOPHILS # (AUTO) 0.1 K/uL (0.00-0.22); BASOPHILS % (AUTO) 0.8 % (0.0-2.0); EOSINOPHILS # (AUTO) 0.3 K/uL (0-0.4); EOSINOPHILS % (AUTO) 3.9 % (0.0-4.0); LYMPHOCYTES # (AUTO) 1.2 K/uL (2.0-11.5); LYMPHOCYTES % (AUTO) 15.3 % (20.5-51.1); MEAN CORPUSCULAR HEMOGLOBIN 29 pg (27-31); MEAN CORPUSCULAR HGB CONC 33 g/dL (33-37); MEAN CORPUSCULAR VOLUME 88.2 fL (80-94); MONOCYTES # (AUTO) 0.7 K/uL (0.8-1.0); MONOCYTES % (AUTO) 8.9 % (1.7-9.3); NEUTROPHILS # (AUTO) 5.7 K/uL (1.8-7.7); NEUTROPHILS % (AUTO) 71.1 % (42.2-75.2); PLATELET COUNT (AUTO) 233 K/uL (140-450)
[2020-12-16 06:18] LABS: HEMATOCRIT 18.5 % (36-52); HEMOGLOBIN 6.1 g/dL (12.0-18.0)
[2020-12-16] MEDS: BLOOD GLUCOSE MONITORING 1 DEV DEV FS SCH ×4 (06:32→20:15)
--- NOTE | 2020-12-16 07:15 | NUR ---
RECEIVED HANDOFF FROM EMISSIONS ENGINEER RN. PT IS ALERT AND ORIENTED X4, CHINESE SPEAKING. PT IS SR/SB ON THE MONITOR AT THIS TIME. PT IS CURRENTLY ON 2 L NC, NO SIGNS OF RESPIRATORY DISTRESS. FOR ACCESS PT HAS LAC 18 G. HEPARIN DRIP HAS BEEN HELD SINCE MIDNIGHT DUE TO PROCEDURE OCCURRING TODAY. PT IS ALSO NPO SINCE MIDNIGHT FOR PROCEDURE. PT IS ABLE TO USE URINAL. HOB IS 30 DEG, PT IS RESTING IN BED AT THIS TIME. SAFETY MEASURES IN PLACE. WILL CONTINUE TO MONITOR.
--- NOTE | 2020-12-16 07:20 | NUR ---
ENDORSED CARE AND REPORT TO CHE RM.
--- NOTE | 2020-12-16 07:47 | NUR ---
CONSENT OBTAINED FOR TRANSFUSION OF BLOOD USING RN FIRST ASSISTANT ([id number]).
[2020-12-16] MEDS: CLOPIDOGREL 75 MG TAB PO SCH (08:00)
[2020-12-16] MEDS: ASPIRIN 81 MG TAB.CHEW PO SCH (08:00)
[2020-12-16] MEDS: carvediloL 12.5 MG TAB PO SCH ×2 (08:12→20:23)
[2020-12-16] MEDS: ENALAPRIL 10 MG TAB PO SCH (08:13)
[2020-12-16] MEDS: SIMVASTATIN 40 MG TAB PO SCH (08:13)
[2020-12-16] MEDS: AZITHROMYCIN 250 MG TAB PO SCH (08:13)
--- NOTE | 2020-12-16 08:21 | NUR ---
MEDICATIONS ADMINISTERED PER ORDER, PT TOLERATED WELL. SIDE EFFECTS AND PURPOSES OF MEDICATIONS EXPLAINED. TEMPERATURE 97.3 AXILLARY. PT RESTING IN BED NOW.
--- NOTE | 2020-12-16 10:10 | NUR ---
BLOOD TRANSFUSION STARTED. ALL INFORMATION VERIFIED WITH NORMA MURO VSS AT THIS TIME.
--- NOTE | 2020-12-16 10:12 | NUR ---
DC PLANN[age] YRS OLD MALE PATIENT WAS ADMITTED FROM HOME WITH A DX OF ACUTE HYPOXIC RESP FAILURE,CHF EXACERBATION. PT HAS A HX OF CVA, HLD, DM AND HTN. CXR SHOWED POSSIBLE EDEMA VS MULTIFOCAL PNEUMONIA , PULMONARY VASCULAR CONGESTION CT HEAD NEGATIVE. RAPID COVID TEST NEGATIVE. H/H TODAY WAS 6.1/18.5 TRANSFUSED 1 UNIT PRBC. ADMINISTERED IV ABX ROCEPHIN AND AZITHROMYCIN AND CONTINUED HOME MEDS. CONSULTED WITH CARDIO FOR HIGH TROPONIN, PULMO, NEPHRO AND SURGEON FOR POSSIBLE DIALYSIS CATH. DC PLAN TO GO HOME WHEN STABLE CM TO FOLLOW. Addendum: 12/16/20 at 1207 by Mary Millard CM RYLIE REPAIRER PUMP: RECEIVED ORDER TO ARRANGE OUT PATIENT DIALYSIS AT [facility], FAXED PAPER WORK WILL FOLLOW UP. Addendum: 12/16/20 at 1306 by Mary Millard CM RYLIE REPAIRER PUMP: FOLLOWED UP WITH [facility] [phone] AND SPOKE TO KYLE PATIENTS CHAIR TIME IS T,TH,SAT @1:00 PM Addendum: 12/17/20 at 1047 by Mary Millard CM RYLIE REPAIRER PUMP: FAXED TRANSPORTATION REQUEST FORM FOR DIALYSIS TO [facility]. WILL FOLLOW UP. SPOKE TO PATIENTS KAYDEN WERNER [phone] SHE STATED THAT PATIENT HAS A THERMOPLASTIC TECHNICIAN CELSA [phone] WHO MAY BE ABLE TO HELP WITH TRANSPORTATION. Addendum: 12/17/20 at 1505 by Mary Millard CM RYLIE REPAIRER PUMP: SPOKE TO PATIENTS THERMOPLASTIC TECHNICIAN CELSA USING FUNDING COORDINATOR [id number] TO SEE IF SHE WOULD BE ABLE TO ASSIST WITH TRANSPORTATION SHE STATED THAT SHE WOULD NOT BE ABLE TO BECAUSE SHE ONLY WORKS WITH PATIENT FOR 4 HOURS IN THE MORNING. SHE ALSO PROVIDED ME WITH PATIENTS PCP NAME AND TELEPHONE NUMBER BECAUSE IT WAS NOT LISTED. [facility] [phone] Addendum: 12/17/20 at 1506 by Mary Millard CM RYLIE MAHARAJ: PCP APPOINTMENT WITH [facility] [phone] ON 12/24/2020 AT 9:00 AM Addendum: 12/18/20 at 1055 by Mary Millard CM RYLIE MAHARAJ: PROVIDED PATIENT A XERALTO COUPON. Addendum: 12/18/20 at 1222 by Mary Hernadezeda CM RYLIE MAHARAJ: RECEIVED ORDER FOR HOME HEALTH FOR HOME SAFETY EVAL AND PT. SPOKE TO PATIENTS DAUGHTER ALPHONSO. PATIENT HAS NEVER HAD A HOME HEALTH AGENCY AND THEY DO NOT HAVE A PREFERENCE. FAXED TO [facility]. Addendum: 12/18/20 at 1230 by Mary Mayeda CM RYLIE MAHARAJ: FOLLOWED UP WITH JESSICA AT [facility] [phone] SHE IS GOING TO RUN ELIGIBILITY AND CONTACT ME BACK SHORTLY. Addendum: 12/18/20 at 1310 by Mary Mayeda CM RYLIE MOYERNER: RECEIVED A CALL FROM JESSICA AT [facility] THEY ARE ABLE TO ACCEPT THIS PATIENT.
--- NOTE | 2020-12-16 10:51 | NUR ---
SOCIAL WORK NOTE: ALYCE CONTACTED PATIENT'S FAMILY, JONN CHINCHILLA [phone] TO COMPLETE ASSESSMENT. ALYCE LEFT VM AND WILL FOLLOW UP. Addendum: 12/17/20 at 1030 by Jose Saul SS ALYCE LEFT ADDITIONAL VM FOR JONN CHINCHILLA TO COMPLETE ASSESSMENT. ALYCE WILL FOLLOW UP.
--- NOTE | 2020-12-16 11:31 | NUR ---
DR. BROWN SEEING PT
--- NOTE | 2020-12-16 11:35 | NUR ---
DR. SOLIMAN SEEING PT
[2020-12-16] MEDS ORDERED: POTASSIUM CHLORIDE 10 MEQ TABER PO PRN (12:55)
[2020-12-16] MEDS ORDERED: MAG SULF 2000 MG/WATER PREMIX 50 ML IV PRN (12:55)
--- NOTE | 2020-12-16 13:10 | NUR ---
DR. BROWN AWARE PT. HAVE NOT RECEIVE [ [place]] MEDICATION FAMILY HAS BEEN CALLED TO BRING THE MEDICAL IN ,NO ONE ANSWER ,LEFT THE MASSAGE. WILL FOLLOW UP.
--- NOTE | 2020-12-16 13:30 | NUR ---
DR. LIN AT BEDSIDE FOR HD CATHETER PLACEMENT. TIME OUT PERFORMED AND STERILE PROCEDURE FOLLOWED.
--- NOTE | 2020-12-16 13:34 | NUR ---
PT. WITH LOW JUSTIN SCALE AT RISK, CONTINUE TO FOLLOW PRESSURE INJURY PREVENTION INTERVENTIONS. -TURN AND REPOSITION PATIENT Q 2H -ASSESS AND MONITOR SKIN CONDITION DURING POSITION CHANGE -OFFLOAD BILATERAL HEELS BY PLACING PILLOWS UNDER CALVES AT ALL TIMES, UNLESS OTHERWISE CONTRAINDICATED -PRESSURE REDISTRIBUTION BY PLACING PILLOWS AND OFFLOADING SACRALCOCCYX -KEEP SKIN CLEAN AND DRY AT ALL TIMES.
--- NOTE | 2020-12-16 15:50 | NUR ---
IT HELP DESK MANAGER AT BEDSIDE.
--- NOTE | 2020-12-16 16:35 | NUR ---
BS 115, NO INSULIN COVERAGE NEEDED. TEMPERATURE 98.4 AXILLARY. PT RESTING SITTING UP IN BED AT THIS TIME. DIALYSIS OCCURRING.
--- NOTE | 2020-12-16 17:45 | NUR ---
DR. Tank AMES SEEING PT
--- NOTE | 2020-12-16 18:30 | NUR ---
PT ASSISTED WITH DINNER, ATE 100%
[2020-12-16] MEDS: CLONIDINE HYDROCHLORIDE 0.1 MG TAB PO PRN (18:32)
--- NOTE | 2020-12-16 19:22 | NUR ---
HANDOFF GIVEN TO BUSINESS TECHNOLOGY TEACHER RN FOR CONTINUITY OF CARE
--- NOTE | 2020-12-16 19:30 | NUR ---
RECEIVED CARE AND REPORT FROM DAYSHIFT RN. UPON ENTERING THE ROOM AT BEDSIDE, PATIENT ALERT AND ORIENTED X 4, LITHUANIAN SPEAKING, TO PERSON, PLACE, TIME AND EVENT, ABLE TO FOLLOW COMMANDS AND PARTICIPATE IN PATIENT EDUCATION. PATIENT LAYING IN THE BED, HOB 25 DEGREES RESTING IN A POSITION OF COMFORT, CALM, RESTING. CONNECTED TO HUMIDIFIED NC 2 LPM, RR 18, OXYGEN SATURATION 99%, TOLERATING THERAPIES WELL. PATIENT CONNECTED TO CONTINUOUS CARDIAC MONITORING, HR 77, NO SIGNS OF DISTRESS NOTED. PATIENT IV ACCESS SITES INCLUDE LEFT HAND 20G AND HD ACCESS RIGHT SIDED JENNIFER CATHETER. IV DRIPS CURRENTLY RUNNING INCLUDE NS 0.9% AT 5 ML/HR, TKO. IV SITE INTACT, DRESSING DRY AND SECURED TO THE PATIENT, FLUSHES WELL. PATIENT APPROXIMATE WEIGHT IS 91.6 KG. PATIENT ABLE TO USE BEDSIDE URINAL AND BED PEREZ WITH RN ASSISTANCE. PATIENT SKINS SHOW LEFT FOOT MISSING MIDDLE DIGIT, RIGHT FOOT ANKLE BRACE, BRUISING TO BACK AND BILATERAL ARMS. PATIENT CURRENTLY BEING OFFLOADED FROM PRESSURE POINTS WITH USE OF PILLOWS AND FREQUENT REPOSITIONING. BED LOCKED AND LOWERED INTO A POSITION OF SAFETY, NURSE CALL LIGHT WITHIN ARMS REACH AND PATIENT POSITIONED CLOSE TO THE NURSING STATION. WILL CONTINUE TO CLOSELY MONITOR AND FREQUENTLY ROUND THROUGHOUT THE SHIFT.
[2020-12-16 20:14] LABS: BASOPHILS # (AUTO) 0.1 K/uL (0.00-0.22); EOSINOPHILS # (AUTO) 0.4 K/uL (0-0.4); EOSINOPHILS % (AUTO) 4.6 % (0.0-4.0); HEMATOCRIT 25.3 % (36-52); HEMOGLOBIN 8.5 g/dL (12.0-18.0); LYMPHOCYTES # (AUTO) 0.8 K/uL (2.0-11.5); LYMPHOCYTES % (AUTO) 9.7 % (20.5-51.1); MEAN CORPUSCULAR HEMOGLOBIN 29 pg (27-31); MEAN CORPUSCULAR HGB CONC 34 g/dL (33-37); MEAN CORPUSCULAR VOLUME 85.4 fL (80-94); MONOCYTES # (AUTO) 0.9 K/uL (0.8-1.0); MONOCYTES % (AUTO) 9.9 % (1.7-9.3); NEUTROPHILS # (AUTO) 6.5 K/uL (1.8-7.7); NEUTROPHILS % (AUTO) 74.8 % (42.2-75.2); PLATELET COUNT (AUTO) 251 K/uL (140-450); RED BLOOD CELL COUNT(AUTO) 2.96 MIL/uL (4.20-6.10); RED CELL DISTRIBUTION WIDTH 14.6 % (11.6-13.7); WHITE BLOOD COUNT (AUTO) 8.6 K/uL (4.8-10.8)
[2020-12-16] MEDS: INSULIN LISPRO SLIDING SCALE 100 UNITS/ML VIAL SUBQ PRN (20:20)
[2020-12-16] MEDS: hePARIN / DEXT 5% PREMIX 250 ML IV SCH (20:25)
--- NOTE | 2020-12-16 20:30 | NUR ---
BLOOD GLUCOSE 185, 2 UNITS COVERAGE GIVEN PER ORDERS. WILL CONTINUE TO CLOSELY MONITOR AND FREQUENTLY ROUND.
--- NOTE | 2020-12-16 21:25 | NUR ---
PATIENT VOIDED ONCE WITH RN ASSISTANCE. NO SIGNS OF DISTRESS AT BEDSIDE. TOLERATING THERAPIES WELL. WILL CONTINUE O CLOSELY MONITOR AND FREQUENTLY ROUND.
--- NOTE | 2020-12-16 22:00 | NUR ---
PATIENT SLEEPING IN A POSITION OF COMFORT, RESTING WITH HOB 30 DEGREES, TOLERATING HUMIDIFIED OXYGEN 2 LPM WELL. CALM, RELAXED. NO SIGNS OF DISTRESS NOTED WHILE AT BEDSIDE. WILL CONTINUE TO CLOSELY MONITOR AND FREQUENTLY ROUND.
[2020-12-17] VITALS (9 sets, daily range): BP systolic 152–185; BP diastolic 64–85
--- NOTE | 2020-12-17 00:18 | NUR ---
PATIENT AWAKE, WATCHING TV. NO SIGNS OF DISTRESS WHEN AT BEDSIDE. COAL GRADER CURRENTLY SHOWS HR 73, RR 22, AND OXYGEN SATURATION AT 95%, TOLERATING CURRENT THERAPIES WELL. SAFETY CHECKS IN PLACE. WILL CONTINUE TO CLOSELY MONITOR AND FREQUENTLY ROUND.
[2020-12-17 02:03] LABS: PROTHROMBIN TIME 10.7 secs (10.8-13.4)
--- NOTE | 2020-12-17 02:30 | NUR ---
UPDATED PTT 33.7, PER HEPARIN PROTOCOL BOLUS 5000 UNITS AND INCREASE DRIP RATE TO 1250 UNITS/HR. INCREASED RATE UP PER PROTOCOL. NO SIGNS OF DISTRESS NOTED AT BEDSIDE. WILL CONTINUE TO CLOSELY MONITOR AND FREQUENTLY.
[2020-12-17] MEDS: CLONIDINE HYDROCHLORIDE 0.1 MG TAB PO PRN (02:35)
--- NOTE | 2020-12-17 04:00 | NUR ---
RECEIVED REPORT FROM ICU NURSE STARR, GAVE REPORT TO NIGHT JAG BARTHOLOMEW FOR CONTINUITY OF CARE.
--- NOTE | 2020-12-17 04:10 | NUR ---
GAVE REPORT AND ENDORSED CARE TO SIMONE, PATIENT TRANSPORTED TO [facility] FOR CONTINUITY OF CARE. VS STABLE AT TIME OF TRANSPORT.
--- NOTE | 2020-12-17 04:20 | NUR ---
RECEIVED REPORT FROM JAG FOSS FOR CONTINUITY OF CARE. PATIENT TRANSFERRED TO ROOM 114. NO S/S DISTRESS. CALL LIGHT WITHIN REACH.
--- NOTE | 2020-12-17 05:30 | NUR ---
DUE MEDS GIVEN. PATIENT RESTING COMFORTABLY IN BED. NO S/S ACUTE DISTRESS. SAFETY PRECAUTIONS IN PLACE. CALL LIGHT WITHIN REACH.
[2020-12-17] MEDS: hydrALAZINE 25 MG TAB PO SCH ×3 (05:44→21:57)
[2020-12-17] MEDS: BLOOD GLUCOSE MONITORING 1 DEV DEV FS SCH ×4 (06:30→21:39)
[2020-12-17 06:58] LABS: BASOPHILS # (AUTO) 0.1 K/uL (0.00-0.22); BASOPHILS % (AUTO) 1.2 % (0.0-2.0); EOSINOPHILS # (AUTO) 0.5 K/uL (0-0.4); EOSINOPHILS % (AUTO) 6.1 % (0.0-4.0); HEMATOCRIT 22.5 % (36-52); HEMOGLOBIN 7.5 g/dL (12.0-18.0); LYMPHOCYTES # (AUTO) 1.1 K/uL (2.0-11.5); LYMPHOCYTES % (AUTO) 12.6 % (20.5-51.1); MAGNESIUM 2.2 mg/dL (1.8-2.4); MEAN CORPUSCULAR HEMOGLOBIN 29 pg (27-31); MEAN CORPUSCULAR HGB CONC 33 g/dL (33-37); MEAN CORPUSCULAR VOLUME 85.5 fL (80-94); MONOCYTES # (AUTO) 0.9 K/uL (0.8-1.0); MONOCYTES % (AUTO) 10.9 % (1.7-9.3); NEUTROPHILS # (AUTO) 5.9 K/uL (1.8-7.7); NEUTROPHILS % (AUTO) 69.2 % (42.2-75.2); PHOSPHORUS 5.4 mg/dL (2.5-4.9); PLATELET COUNT (AUTO) 243 K/uL (140-450); RED BLOOD CELL COUNT(AUTO) 2.63 MIL/uL (4.20-6.10); RED CELL DISTRIBUTION WIDTH 14.9 % (11.6-13.7); WHITE BLOOD COUNT (AUTO) 8.5 K/uL (4.8-10.8)
[2020-12-17 07:03] LABS: ANION GAP 10.5 (8-16); CARBON DIOXIDE 28.3 mmol/L (21-32); POTASSIUM 3.8 mmol/L (3.5-5.1)
--- NOTE | 2020-12-17 07:20 | NUR ---
RECEIVED BEDSIDE REPORT FROM NIGHTSHIFT NURSE. PT RESTING IN BED. ABLE TO MAKE NEEDS KNOWN. RESPIRATIONS EVEN AND UNLABORED WITH NO SOB OR RESPIRATORY DISTRESS. SKIN WARM AND DRY TO TOUCH. IV SITE IN LAC 18G IS CLEAN, DRY, AND INTACT. SAFETY MEASURES IN PLACE. WILL CONTINUE TO MONITOR
[2020-12-17] MEDS: AZITHROMYCIN 250 MG TAB PO SCH (08:44)
[2020-12-17] MEDS: CLOPIDOGREL 75 MG TAB PO SCH (08:45)
[2020-12-17] MEDS: carvediloL 12.5 MG TAB PO SCH ×2 (08:46→21:58)
[2020-12-17] MEDS: ENALAPRIL 10 MG TAB PO SCH (08:46)
[2020-12-17] MEDS: SIMVASTATIN 40 MG TAB PO SCH (08:46)
--- NOTE | 2020-12-17 08:49 | NUR ---
ADMINISTERED SCHED MED PRESCRIBED PER MD ORDER. PT TOLERATED WELL. MEDICATION EDUCATION PERFORMED. PT VERBALIZED UNDERSTANDING. SAFETY MEASURES IN PLACE. WILL CONTINUE TO MONITOR
[2020-12-17 09:35] LABS: PROTHROMBIN TIME 11.2 secs (10.8-13.4)
--- NOTE | 2020-12-17 10:00 | NUR ---
ADJUSTED HEPARIN DRIP PER PROTOCOL. SAFETY MEASURES IN PLACE. WILL CONTINUE TO MONITOR
[2020-12-17] MEDS: hePARIN / DEXT 5% PREMIX 250 ML IV SCH ×4 (10:01→23:56)
--- NOTE | 2020-12-17 11:30 | NUR ---
PT BLOOD SUGAR IS 156. PT STATED HE DOES NOT HAVE MUCH OF AN APPETITE. WILL HOLD INSULIN FOR NOW. MD AWARE. WILL CONTINUE TO MONITOR
--- NOTE | 2020-12-17 13:30 | NUR ---
PT HAD BOWEL MOVEMENT. ASSISTED H[employer]CHOOL MUSIC INSTRUCTOR WITH TURNING, CLEANING, AND REPOSITIONING PATIENT. PT TOLERATED WELL. WILL CONTINUE TO MONITOR
--- NOTE | 2020-12-17 13:55 | NUR ---
SOCIAL WORK NOTE: Patient's Orientation Person Situation Place Time Information Provided By PATIENT Comments SW MET WITH PATIENT AT BEDSIDE TO COMPLETE ASSESSMENT. SW USED LADLE HANDLER LITO [id number]. SW ALSO SPOKE WITH PATIENT'S CAREGIVER. Side Boss, Realtionship and Phone Number JONN CHINCHILLA FAMILY [phone] CELSA GOTTLIEB CAREGIVER [phone] Healthcare Power of Coverage Specialist Rn No Does Patient Have a POLST No Identifying Problems No Social Work Triggers Is A Social Work Consult Needed No Mandate Report Filed No Explanation Of Identifying Problems PATIENT IS A 65-YEAR-OLD MALE ADMITTED FOR ACUTE HYPOXIC RESPIRATORY FAILURE. PATIENT HAS PMHX OF DIABETES, CVA, HYPERLIPEDEMIA, AND HYPERTENSION. Admitted From Home Pre-Admission Level Of Functioning Status Total Care Level Of Functioning Comment PER PATIENT, HIS CAREGIVER ASSISTS HIM WITH COOKING, CLEANING, PICKING UP PRESCRIPTIONS, AND BATHING. Prior Resources/Services Used In Last 12 Months [facility] Prior Resources/Service Comments PATIENT STATED THAT HE RECEIVES 118 HOURS A MONTH. Prior DME Walker Wheelchair Dialysis Hemodialysis Name And Phone Number of Dialysis Facility [facility] ESR[facility] Outpatient Days T TH SAT ESRD Outpatient Time 1300 Dialysis Comments PATIENT IS A NEW PATIENT FOR [facility]. Living Situation Apartment Lives W/Significant Other Patient Had Caregiver Yes Name and Contact Number Of Designated Caregiver CELSA GOTTLIEB - [phone] Home Support No Caregiver Issues Financial Issues No Known Financial Issue Referral To The Financial Counselor Needed No Factors/Needs No D/C Needs Identified Pt/Rep Participated In Discharge Plan Yes Patient/Family Agress With Discharge Plan Yes Discharge Plan Comments TENTATIVE DISCHARGE PLAN IS FOR PATIENT TO BE DISCHARGED HOME.
--- NOTE | 2020-12-17 14:30 | NUR ---
PT TO RECEIVE HD TODAY. REPORT GIVEN AT BEDSIDE. SAFETY MEASURES IN PLACE. WILL CONTINUE TO MONITOR
--- NOTE | 2020-12-17 15:30 | NUR ---
OBTAINED URINE SPECIMEN PRESCRIBED PER MD ORDER. PT TOLERATED WELL. SPECIMEN SENT TO LAB. WILL CONTINUE TO MONITOR
[2020-12-17 15:52] LABS: APPEARANCE,URINE CLEAR (CLEAR); BILIRUBIN,URINE NEGATIVE (NEGATIVE); BLOOD, URINE 1+ (NEGATIVE); COLOR,URINE YELLOW (YELLOW); LEUKOCYTE ESTERASE ,URINE NEGATIVE (NEGATIVE); NITRITE, URINE NEGATIVE (NEGATIVE); PH,URINE 7.5 (5.0-9.0); UGLUCOSE 3+ (NEGATIVE)
--- NOTE | 2020-12-17 16:30 | NUR ---
PT BLOOD SUGAR IS 215. PRN INSULIN WILL BE ADMINISTERED PRESCRIBED PER MD ORDER WITH MEAL. SAFETY MEASURES IN PLACE. WILL CONTINUE TO MONITOR
[2020-12-17 16:57] LABS: WBC,URINE 0-5 /HPF (0-5)
[2020-12-17] MEDS: INSULIN LISPRO SLIDING SCALE 100 UNITS/ML VIAL SUBQ PRN ×2 (17:46→21:59)
--- NOTE | 2020-12-17 17:50 | NUR ---
ADMINISTERED PRN INSULIN PRESCRIBED PER MD ORDER. PT TOLERATED WELL. SAFETY MEASURES IN PLACE. WILL CONTINUE TO MONITOR
--- NOTE | 2020-12-17 18:06 | NUR ---
PT FINISHED HD AND GOT 2L OUT. PT TOLERATED WELL. SAFETY MEASURES IN PLACE. WILL CONTINUE TO MONITOR
--- NOTE | 2020-12-17 19:15 | NUR ---
ENDORSED TO NIGHTSHIFT FOR CONTINUITY OF CARE. PT IS STABLE
--- NOTE | 2020-12-17 19:45 | NUR ---
RECEIVED BEDSIDE REPORT FROM BEAD CUTTER NURSE CAMERON, RN. PT ASSIGNMENT WAS CHANGED RIGHT NOW. PT IS A&OX4. ON 2L O2 NC. SR ON TELE MONITORING. PT HAS A URINAL AT BEDSIDE FOR VOIDING. SKIN IS WARM, DRY, AND INTACT. BRUISE ON BACK PER BEAD CUTTER RN, S/P FALL. IV IS IN THE LEFT AC 18 GAUGE WITH HEPARIN DRIP INFUSING. HD TODAY WITH 2L OUT. RIGHT ARM TAMMY CATH IN PLACE. RIGHT ANKLE BRACE IN PLACE FOR S/P FALL ON 12/11/20. PT IS STABLE AT THIS TIME. PLAN OF CARE DISCUSSED. [place] PRECAUTIONS IN PLACE FOR R/O TB.
--- NOTE | 2020-12-17 21:30 | NUR ---
PT IS AWAKE AND ALERT, A&OX4. SPEAKING APPROPRIATELY. PT DENIES PAIN. IV IS PATENT AND INFUSING HEPARIN DRIP. NO RESPIRATORY DISTRESS NOTED. PT IS STABLE.
--- NOTE | 2020-12-17 22:35 | NUR ---
PT ONLY HAD ONE IV ON THE LEFT AC THAT WAS RUNNING HEPARIN DRIP SO NEW IV WAS PLACED ON THE RIGHT HAND 24 GAUGE. IT WAS PLACED ON THE FIRST ATTEMPT AND IS FLUSHING WELL. PT TOLERATED PROCEDURE WELL.
--- NOTE | 2020-12-17 23:56 | NUR ---
LAB CAME BACK WITH APTT OF 47.1. NO CHANGES NEEDED FOR HEPARIN DRIP PER PROTOCOL. IV IS STILL PATENT AND INFUSING.
[2020-12-18] VITALS: BP 146/47
--- NOTE | 2020-12-18 01:00 | NUR ---
PT WAS ADJUSTED IN BED AND REPOSITIONED. PT WAS ASSISTED WITH THE URINAL WELL AND VOIDED. CLEAR, YELLOW URINE WAS PRESENT. PT IS AWAKE AND ALERT. NO DISTRESS AT THIS TIME. HEPARIN DRIP INFUSING ORDERED.
--- NOTE | 2020-12-18 02:41 | NUR ---
MADE ROUNDS ON PT. HE IS SLEEPING IN SEMI FOWLERS POSITION. ANOTHER BLANKET WAS PROVIDED FOR COMFORT PT SKIN FELT COLD. TEMP 97.5 F. NO SOB OR DIFFICULTY BREATHING AT THIS TIME. PT IS STABLE.
[2020-12-18 04:00] VITALS: BP 115/64
--- NOTE | 2020-12-18 04:15 | NUR ---
ROUNDED ON PT. HE IS SLEEPING IN SEMI FOWLERS POSITION. NO DISTRESS NOTED. NO PAIN AT THIS TIME. BREATHING IS UNLABORED. NO SOB OR COUGHING. IV IS INFUSING HEPARIN DRIP. WILL CONTINUE TO MONITOR.
[2020-12-18] MEDS: hydrALAZINE 25 MG TAB PO SCH ×2 (05:00→12:30)
--- NOTE | 2020-12-18 05:20 | NUR ---
CAGE TENDER AT BEDSIDE DRAWING PTT. WILL WAIT FOR RESULTS. PT WAS ASSISTED IN USING THE URINAL. HE VOIDED CLEAR, YELLOW URINE. NO DISTRESS NOTED.
[2020-12-18] MEDS: BLOOD GLUCOSE MONITORING 1 DEV DEV FS SCH ×2 (06:03→11:51)
[2020-12-18 06:08] LABS: BASOPHILS # (AUTO) 0.1 K/uL (0.00-0.22); BASOPHILS % (AUTO) 1.1 % (0.0-2.0); EOSINOPHILS # (AUTO) 0.5 K/uL (0-0.4); EOSINOPHILS % (AUTO) 5.9 % (0.0-4.0); HEMATOCRIT 22.3 % (36-52); HEMOGLOBIN 7.6 g/dL (12.0-18.0); LYMPHOCYTES # (AUTO) 1.3 K/uL (2.0-11.5); LYMPHOCYTES % (AUTO) 15.6 % (20.5-51.1); MEAN CORPUSCULAR HEMOGLOBIN 29 pg (27-31); MEAN CORPUSCULAR HGB CONC 34 g/dL (33-37); MEAN CORPUSCULAR VOLUME 85.7 fL (80-94); MONOCYTES # (AUTO) 0.9 K/uL (0.8-1.0); MONOCYTES % (AUTO) 10.3 % (1.7-9.3); NEUTROPHILS # (AUTO) 5.6 K/uL (1.8-7.7); NEUTROPHILS % (AUTO) 67.1 % (42.2-75.2); PLATELET COUNT (AUTO) 262 K/uL (140-450); RED CELL DISTRIBUTION WIDTH 14.4 % (11.6-13.7); WHITE BLOOD COUNT (AUTO) 8.4 K/uL (4.8-10.8)
[2020-12-18 06:10] LABS: CARBON DIOXIDE 29.8 mmol/L (21-32); POTASSIUM 3.8 mmol/L (3.5-5.1)
[2020-12-18 06:33] LABS: MAGNESIUM 1.8 mg/dL (1.8-2.4); PHOSPHORUS 3.7 mg/dL (2.5-4.9)
[2020-12-18 06:34] LABS: CREATININE 4.5 mg/dL (0.6-1.3)
[2020-12-18] MEDS: hePARIN / DEXT 5% PREMIX 250 ML IV SCH (06:50)
--- NOTE | 2020-12-18 07:10 | NUR ---
ENDORSED PT TO DAY SHIFT NURSE FOR CONTINUITY OF CARE. PT IS STABLE AT THIS TIME. PLAN OF CARE DISCUSSED.
--- NOTE | 2020-12-18 07:15 | NUR ---
RECEIVED BEDSIDE REPORT FROM NIGHTSHIFT NURSE. PT RESTING IN BED. ABLE TO MAKE NEEDS KNOWN. RESPIRATIONS EVEN AND UNLABORED WITH NO SOB OR RESPIRATORY DISTRESS. SKIN WARM AND DRY TO TOUCH. IV SITE IN LAC 18G, AND R HAND 24G IS CLEAN, DRY, AND INTACT. SAFETY MEASURES IN PLACE. WILL CONTINUE TO MONITOR
[2020-12-18 08:00] VITALS: BP 190/81
[2020-12-18 08:07] LABS: HEPATITIS A ANTIBODY IGM Negative (Negative); HEPATITIS B CORE AB TOTAL Negative (Negative); HEPATITIS B SURFACE ANTIBODY Reactive (.); HEPATITIS B SURFACE ANTIGEN Negative (Negative)
[2020-12-18] MEDS: CLOPIDOGREL 75 MG TAB PO SCH (09:27)
[2020-12-18] MEDS: CLONIDINE HYDROCHLORIDE 0.1 MG TAB PO PRN (09:27)
[2020-12-18] MEDS: ENALAPRIL 10 MG TAB PO SCH (09:28)
[2020-12-18] MEDS: carvediloL 12.5 MG TAB PO SCH (09:29)
[2020-12-18] MEDS: AZITHROMYCIN 250 MG TAB PO SCH (09:30)
[2020-12-18] MEDS: SIMVASTATIN 40 MG TAB PO SCH (09:30)
--- NOTE | 2020-12-18 09:30 | NUR ---
ADMINISTERED SCHED MED PRESCRIBED PER MD ORDER. PT TOLERATED WELL. MEDICATION EDUCATION PERFORMED. PT VERBALIZED UNDERSTANDING. SAFETY MEASURES IN PLACE. WILL CONTINUE TO MONITOR
[2020-12-18] MEDS ORDERED: HYDR-3233 PO (10:09)
[2020-12-18] MEDS ORDERED: CLOP75TA55 PO (10:10)
--- NOTE | 2020-12-18 11:30 | NUR ---
PT BLOOD SUGAR IS 171. PRN INSULIN WILL BE ADMINISTERED WITH NEXT MEAL. WILL CONTINUE TO MONITOR
[2020-12-18 12:00] VITALS: BP 172/65
[2020-12-18] MEDS: INSULIN LISPRO SLIDING SCALE 100 UNITS/ML VIAL SUBQ PRN (12:30)
--- NOTE | 2020-12-18 12:30 | NUR ---
ADMINISTERED SCHED MED PRESCRIBED PER MD ORDER. PT TOLERATED WELL. MEDICATION EDUCATION PERFORMED. PT VERBALIZED UNDERSTANDING. SAFETY MEASURES IN PLACE. WILL CONTINUE TO MONITOR
--- NOTE | 2020-12-18 14:15 | NUR ---
PT RESTING IN BED. ABLE TO MAKE NEEDS KNOWN. RESPIRATIONS EVEN AND UNLABORED WITH NO SOB OR RESPIRATORY DISTRESS. SKIN WARM AND DRY TO TOUCH. SAFETY MEASURES IN PLACE. WILL CONTINUE TO MONITOR
[2020-12-18 14:39] VITALS: BP 172/65
--- NOTE | 2020-12-18 15:30 | NUR ---
PRIOR TO DISCHARGE INSTRUCTIONS, USED ACROBATIC DANCER CHAIM AND SPOKE TO DEVONTE [id number]. WENT OVER DISCHARGE INSTRUCTIONS WITH PT. PT VERBALIZED UNDERSTANDING. EDUCATED PT TO VISIT ED FOR ANY SIGNS OF DISTRESS. PT VERBALIZED UNDERSTANDING. REMOVED INTACT IV CANNULA. NO SIGNS OF BLEEDING PRESENT. WENT OVER MEDICATION WITH PATIENT AND PT VERBALIZED UNDERSTANDING. REMOVED TELE MONITOR ID BAND AND RETURNED TO CLOCKMAKER. PT UP TO DATE ON VACCINES. EDUCATED FAMILY MEMBER ALPHONSO THE DAUGHTER ABOUT DISCHARGE INSTRUCTIONS WELL FOLLOW UP APPOINTMENT WITH PCP, CARDIAC CATH, AND CONTINUING HD. ALPHONSO VERBALIZED UNDERSTANDING. PT CHANGED INTO OWN CLOTHING AND GATHERED HIS BELONGINGS. PT STABLE TO GO HOME VIA PRIVATE VEHICLE
== END 2020-12-18 15:25 | disposition home health service (06) | DRG 280 ==
LOC: MED 16:54 → MIC 19:52 → MTU 12-17 04:15
PROVIDERS: ADMIT Emergency Medicine; ATTEND Emergency Medicine
PROC: 5A09357 Assistance with Respiratory Ventilation, Less than 24 Consecutive Hours, Continuous Positive Airway Pressure (ICD-10-PCS; 2020-12-13)
PROC: 02HV33Z Insertion of Infusion Device into Superior Vena Cava, Percutaneous Approach (ICD-10-PCS; principal; 2020-12-16)
PROC: B548ZZA Ultrasonography of Superior Vena Cava, Guidance (ICD-10-PCS; 2020-12-16)
PROC: 5A1D70Z Performance of Urinary Filtration, Intermittent, Less than 6 Hours Per Day (ICD-10-PCS; 2020-12-16)
PROC: 30233N1 Transfusion of Nonautologous Red Blood Cells into Peripheral Vein, Percutaneous Approach (ICD-10-PCS; 2020-12-16)
PROC: 5A1D70Z Performance of Urinary Filtration, Intermittent, Less than 6 Hours Per Day (ICD-10-PCS; 2020-12-17)
DX: I13.2 Hypertensive heart and chronic kidney disease with heart failure and with stage 5 chronic kidney disease, or end stage renal disease (principal); I21.4 Non-ST elevation (NSTEMI) myocardial infarction; J96.01 Acute respiratory failure with hypoxia; I50.43 Acute on chronic combined systolic (congestive) and diastolic (congestive) heart failure; N17.0 Acute kidney failure with tubular necrosis; J18.9 Pneumonia, unspecified organism; N18.6 End stage renal disease; J98.11 Atelectasis; I69.351 Hemiplegia and hemiparesis following cerebral infarction affecting right dominant side; I24.9 Acute ischemic heart disease, unspecified; E78.5 Hyperlipidemia, unspecified; R60.1 Generalized edema; E11.22 Type 2 diabetes mellitus with diabetic chronic kidney disease; E11.65 Type 2 diabetes mellitus with hyperglycemia; M50.90 Cervical disc disorder, unspecified, unspecified cervical region; D63.8 Anemia in other chronic diseases classified elsewhere; N28.1 Cyst of kidney, acquired; M47.812 Spondylosis without myelopathy or radiculopathy, cervical region; Z20.822 Contact with and (suspected) exposure to COVID-19; Z79.899 Other long term (current) drug therapy; Z79.82 Long term (current) use of aspirin; Z79.4 Long term (current) use of insulin; Z83.3 Family history of diabetes mellitus
CPT/HCPCS: 36415; 36600; 70450; 71045; 72125; 76770; 80048; 80053; 81001; 82570; 82803; 82948; 83036; 83690; 83735; 83880; 84100; 84436; 84439; 84443; 84479; 84484; 85025; 85610; 85730; 86704; 86706; 86708; 86709; 86803; 86886; 86900; 86901; 86920; 87081; 87340; 93005; 93970; 94640; 94660; 97110; 97112; 97163-GP; 97530; 99291; J0696; J1644; J1815; J2060; J3490; J7030; J7060; P9016; Q5106